=== PATIENT | male | born 1980 | race Caucasian/White ===

== ENCOUNTER 2019-12-06 19:14 | Emergency (ER) | payer MEDICAID, OTHER ==
[2019-12-06 19:24] VITALS: BP 153/95; PULSE 63; RESP 18; TEMP 98
--- NOTE | 2019-12-06 19:38 | XR ---
EXAMINATION TYPE: XR ankle complete LT DATE OF EXAM: 12/06/2019 COMPARISON: NONE HISTORY: Ankle pain TECHNIQUE: 3 views FINDINGS: Ankle mortise is anatomic. Joint spaces are normal. Soft tissues appear normal. IMPRESSION: Normal left ankle.
--- NOTE | 2019-12-06 19:47 | ED ---
Extremity Problem HPI - General Source: patient, EMS Mode of arrival: EMS Limitations: no limitations <Charli Delgado - Last Filed: 12/06/19 19:44> <Ewa Zaragoza - Last Filed: 12/14/19 13:18> - General Chief complaint: Extremity Problem,Nontraumatic Stated complaint: Left ankle injury - [facility] Time Seen by Provider: 12/06/19 19:17 - History of Present Illness Initial comments: Patient is a 39-year-old male presenting to the emergency department with a chief complaint of left leg injury. 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 Patient states the door was let loose and hit the anterior aspect of the left ankle. Reports some swelling in the region with a mild abrasion. Tetanus is up-to-date. States he has full range of motion. States the pain is minimal. Patient is denying pain medication. Patient states the incident occurred about half hour prior to arrival. (Charli Delgado) - Related Data Allergies Allergy/AdvReac Type Severity Reaction Status Date / Time No Known Allergies Allergy Verified 12/06/19 19:22 Review of Systems ROS Other: All systems not noted in ROS Statement are negative. <Charli Delgado - Last Filed: 12/06/19 19:44> ROS Other: All systems not noted in ROS Statement are negative. <Ewa Zaragoza - Last Filed: 12/14/19 13:18> ROS Statement: Those systems with pertinent positive or pertinent negative responses have been documented in the HPI. Past Medical History Past Medical History: GERD/Reflux Additional Past Medical History / Comment(s): back pain History of Any Multi-Drug Resistant Organisms: None Reported Past Surgical History: No Surgical Hx Reported Past Psychological History: No Psychological Hx Reported Smoking Status: Current every day smoker Past Alcohol Use History: None Reported Past Drug Use History: None Reported <Charli Delgado - Last Filed: 12/06/19 19:44> General Exam Limitations: no limitations General appearance: alert, in no apparent distress Head exam: Present: atraumatic, normocephalic, normal inspection Eye exam: Present: normal appearance, PERRL, EOMI Pupils: Present: normal accommodation ENT exam: Present: normal exam, normal oropharynx, mucous membranes moist Neck exam: Present: normal inspection, full ROM Respiratory exam: Present: normal lung sounds bilaterally. Absent: respiratory distress, wheezes Cardiovascular Exam: Present: regular rate, normal rhythm, normal heart sounds Extremities exam: Present: full ROM, tenderness (Minimal tenderness at the site of swelling), normal capillary refill, joint swelling, other (+2 ulnar and radial pulses bilaterally. +2 dorsalis pedis and posterior tibialis bilaterally.). Absent: normal inspection (Very mild swelling noted on the anterior aspect of the left ankle. No ecchymotic regions or erythema. Very small abrasion noted.) Back exam: Present: normal inspection, full ROM Neurological exam: Present: alert, oriented X3 Psychiatric exam: Present: normal affect, normal mood Skin exam: Present: warm, dry, intact, normal color <Charli Delgado - Last Filed: 12/06/19 19:44> Course Vital Signs 12/06/19 19:18 Temperature 98 F Pulse Rate 63 Respiratory 18 Rate Blood Pressure 153/95 O2 Sat by Pulse 100 Oximetry Medical Decision Making <Charli Delgado - Last Filed: 12/06/19 19:44> <Ewa Zaragoza - Last Filed: 12/14/19 13:18> - Medical Decision Making Patient is a 39-year-old male presenting to the emergency room with a chief complaint of left ankle pain. 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 Exam reveals mild swelling on the anterior aspect left ankle with full range of motion. Patient neurovascularly intact. X-rays unremarkable. Patient vised alternate between Tylenol Motrin for pain control. Advised to apply ice compress to minimize symptoms. Strict return parameters thoroughly discussed with patient was understanding and agreeable. Case discussed with physician. (Charli Delgado) I was available for consultation in the emergency department. The history and physical exam were done by the midlevel provider. I was consulted for this patients care. I reviewed the case with the midlevel provider and based on their presentation of the patient, I agree with the assessment, medical decision making and plan of care as documented. Chart was dictated using [employer] dictation software. Attempts were made to correct any dictation errors however some typographical errors may persist. Patient was seen during a national state of emergency due to the Covid-19 pandemic. (Ewa Zaragoza) Disposition Is patient prescribed a controlled substance at d/c from ED?: No Time of Disposition: 19:47 <Charli Delgado - Last Filed: 12/06/19 19:44> <Ewa Zaragoza - Last Filed: 12/14/19 13:18> Clinical Impression: Left ankle injury Disposition: HOME SELF-CARE Condition: Stable Instructions (If sedation given, give patient instructions): Ankle Strain (ED) Additional Instructions: Apply ice compress. Alternate between Tylenol and Motrin for pain control. Return to emergency department if symptoms worsen. Referrals: [facility],Clinic [Primary Care Provider] - 1-2 days
[2019-12-06] MEDS ORDERED: DIPH,PERTUS(ACELL)TETVAC-LF 0.5 ML VIAL IM ONE (19:50)
== END 2019-12-06 20:04 | disposition home or self-care (01) ==
LOC: EC 19:14
DX: S90.512A Abrasion, left ankle, initial encounter (principal); F17.200 Nicotine dependence, unspecified, uncomplicated; Z23 Encounter for immunization; W22.8XXA Striking against or struck by other objects, initial encounter; Y92.69 Other specified industrial and construction area as the place of occurrence of the external cause; Y99.0 Civilian activity done for income or pay
CPT/HCPCS: 90471; 90715; 99283

== ENCOUNTER → 2021-05-21 | Outpatient (CLI) | payer MEDICAID, OTHER | END | disposition home or self-care (01) | LOC: LABWHC1 15:06 | PROVIDERS: ATTEND Emergency Medicine | DX: Z20.822 Contact with and (suspected) exposure to COVID-19 (principal) | CPT/HCPCS: 87635 ==

== ENCOUNTER → 2021-05-22 | Outpatient (CLI) | payer MEDICAID, OTHER | END | disposition home or self-care (01) | LOC: LABWHC1 17:25 | PROVIDERS: ATTEND Emergency Medicine | DX: Z20.822 Contact with and (suspected) exposure to COVID-19 (principal) | CPT/HCPCS: 87635 ==

== ENCOUNTER 2022-05-22 08:40 | Emergency (ER) | payer OTHER ==
[2022-05-22 08:48] VITALS: BP 136/88; RESP 18; TEMP 98.1
[2022-05-22] MEDS ORDERED: NITROGLYCERIN OINT 1 INCH/GM PACKET TOPICAL STA (09:00)
[2022-05-22 09:04] VITALS: PULSE 82
--- NOTE | 2022-05-22 09:09 | ED ---
General Adult HPI - General Chief complaint: Chest Pain Stated complaint: chest pain Time Seen by Provider: 05/22/22 08:50 Source: patient, RN notes reviewed, old records reviewed Mode of arrival: ambulatory Limitations: no limitations - History of Present Illness Initial comments: This is a 41-year-old male who presents emergency Department complaining of chest pain. Patient states he had an episode last about 45 minutes Saturday and again on Saturday. Patient states he took aspirin on both occasions and it went away. Patient states he started having chest pain again today and he took an aspirin but the pain continues psychiatric emergency department. Patient denies any radiation of the pain. Patient states the pain is on his left side of his chest and it feels like a squeezing sensation. Patient denies any shortness of breath per patient denies any diaphoretic episodes or patient's any nausea or vomiting. Patient denies any fever chills or cough per patient denies any abdominal pain. Patient states he does have high cholesterol and is taking medicine for that. Patient denies any high blood pressure or diabetes. Patient denies smoking. Patient denies any family history of heart disease. - Related Data Allergies Allergy/AdvReac Type Severity Reaction Status Date / Time No Known Allergies Allergy Verified 12/06/19 19:22 Review of Systems ROS Statement: Those systems with pertinent positive or pertinent negative responses have been documented in the HPI. ROS Other: All systems not noted in ROS Statement are negative. Past Medical History Past Medical History: GERD/Reflux Additional Past Medical History / Comment(s): back pain History of Any Multi-Drug Resistant Organisms: None Reported Past Surgical History: No Surgical Hx Reported Past Psychological History: No Psychological Hx Reported Smoking Status: Current every day smoker Past Alcohol Use History: None Reported Past Drug Use History: None Reported General Exam - General Exam Comments Initial Comments: GENERAL: Patient is well-developed and well-nourished. Patient is nontoxic and well- hydrated and is in mild distress. ENT: Neck is soft and supple. No significant lymphadenopathy is noted. Oropharynx is clear. Moist mucous membranes. Neck has full range of motion without eliciting any pain. EYES: The sclera were anicteric and conjunctiva were pink and moist. Extraocular movements were intact and pupils were equal round and reactive to light. Ey elids were unremarkable. PULMONARY: Unlabored respirations. Good breath sounds bilaterally. No audible rales rhonchi or wheezing was noted. CARDIOVASCULAR: There is a regular rate and rhythm without any murmurs gallops or rubs. ABDOMEN: Soft and nontender with normal bowel sounds. SKIN: Skin is clear with no lesions or rashes and otherwise unremarkable. NEUROLOGIC: Patient is alert and oriented x3. Cranial nerves II through XII are grossly intact. Motor and sensory are also intact. Normal speech, volume and content. Symmetrical smile. MUSCULOSKELETAL: Normal extremities with adequate strength and full range of motion. LYMPHATICS: No significant lymphadenopathy is noted PSYCHIATRIC: Normal psychiatric evaluation. Limitations: no limitations Course Vital Signs 05/22/22 05/22/22 08:44 09:00 Temperature 98.1 F Pulse Rate 100 Pulse Rate [ 82 [employer] ] Respiratory 18 Rate Blood Pressure 136/88 O2 Sat by Pulse 97 Oximetry Medical Decision Making - Medical Decision Making EKG was interpreted by me. EKG showed sinus rhythm at 94 bpm TN interval 160 QRS is 102 QT interval 350 QTC is 402. Patient's EKG did have inverted T waves which changed to upright P waves and back to inverted P waves. Patient had no ST segment elevation. EKG by the computer was read as atrial fibrillation I disagree with this. I did a chest x-ray showed no acute abnormality. I went back in the room to discuss the results with the patient patient stated that he did not want to stay I asked him about staying on at least 2 different occasions and he definitively said he could not stay because he has daycare his daughter and that he would follow-up with his primary to get a stress test. Had the patient and willing to stay I would've admitted him for further evaluation with lab work and had cardiology see him. - Lab Data Result diagrams: 05/22/22 09:11 05/22/22 09:11 Lab Results 05/22/22 05/22/22 05/22/22 Range/Units 09:11 09:11 09:11 WBC 7.2 (3.8-10.6) k/uL RBC 5.48 (4.30-5.90) m/uL Hgb 15.9 (13.0-17.5) gm/dL Hct 46.5 (39.0-53.0) % MCV 84.9 (80.0-100.0) fL MCH 29.1 (25.0-35.0) pg MCHC 34.3 (31.0-37.0) g/dL RDW 12.2 (11.5-15.5) % Plt Count 211 (150-450) k/uL MPV 7.2 Neutrophils % 52 % Lymphocytes % 37 % Monocytes % 4 % Eosinophils % 4 % Basophils % 1 % Neutrophils # 3.8 (1.3-7.7) k/uL Lymphocytes # 2.7 (1.0-4.8) k/uL Monocytes # 0.3 (0-1.0) k/uL Eosinophils # 0.3 (0-0.7) k/uL Basophils # 0.1 (0-0.2) k/uL PT 10.8 (9.0-12.0) sec INR 1.0 (<1.2) APTT 24.2 (22.0-30.0) sec Sodium 141 (137-145) mmol/L Potassium 4.6 (3.5-5.1) mmol/L Chloride 104 (98-107) mmol/L Carbon Dioxide 30 (22-30) mmol/L Anion Gap 7 mmol/L BUN 13 (9-20) mg/dL Creatinine 0.87 (0.66-1.25) mg/dL Est GFR (CKD-EPI)AfAm >90 (>60 ml/min/1.73 sqM) Est GFR (CKD-EPI)NonAf >90 (>60 ml/min/1.73 sqM) Glucose 103 H (74-99) mg/dL Calcium 9.1 (8.4-10.2) mg/dL Magnesium 1.9 (1.6-2.3) mg/dL Total Bilirubin 0.7 (0.2-1.3) mg/dL AST 30 (17-59) U/L ALT 22 (4-49) U/L Alkaline Phosphatase 69 (38-126) U/L Troponin I (0.000-0.034) ng/mL Total Protein 7.2 (6.3-8.2) g/dL Albumin 4.8 (3.5-5.0) g/dL 05/22/22 Range/Units 09:11 WBC (3.8-10.6) k/uL RBC (4.30-5.90) m/uL Hgb (13.0-17.5) gm/dL Hct (39.0-53.0) % MCV (80.0-100.0) fL MCH (25.0-35.0) pg MCHC (31.0-37.0) g/dL RDW (11.5-15.5) % Plt Count (150-450) k/uL MPV Neutrophils % % Lymphocytes % % Monocytes % % Eosinophils % % Basophils % % Neutrophils # (1.3-7.7) k/uL Lymphocytes # (1.0-4.8) k/uL Monocytes # (0-1.0) k/uL Eosinophils # (0-0.7) k/uL Basophils # (0-0.2) k/uL PT (9.0-12.0) sec INR (<1.2) APTT (22.0-30.0) sec Sodium (137-145) mmol/L Potassium (3.5-5.1) mmol/L Chloride (98-107) mmol/L Carbon Dioxide (22-30) mmol/L Anion Gap mmol/L BUN (9-20) mg/dL Creatinine (0.66-1.25) mg/dL Est GFR (CKD-EPI)AfAm (>60 ml/min/1.73 sqM) Est GFR (CKD-EPI)NonAf (>60 ml/min/1.73 sqM) Glucose (74-99) mg/dL Calcium (8.4-10.2) mg/dL Magnesium (1.6-2.3) mg/dL Total Bilirubin (0.2-1.3) mg/dL AST (17-59) U/L ALT (4-49) U/L Alkaline Phosphatase (38-126) U/L Troponin I <0.012 (0.000-0.034) ng/mL Total Protein (6.3-8.2) g/dL Albumin (3.5-5.0) g/dL Disposition Clinical Impression: Chest pain Disposition: HOME SELF-CARE Instructions (If sedation given, give patient instructions): Chest Pain (ED) Is patient prescribed a controlled substance at d/c from ED?: No Referrals: [facility],Clinic [Primary Care Provider] - 1-2 days Time of Disposition: 10:22
[2022-05-22 09:23] LABS: Basophils # (A) 0.1 k/uL (0-0.2); Basophils % (A) 1 %; Eosinophils # (A) 0.3 k/uL (0-0.7); Eosinophils % (A) 4 %; HCT 46.5 % (39.0-53.0); HGB 15.9 gm/dL (13.0-17.5); Lymphocytes # (A) 2.7 k/uL (1.0-4.8); Lymphocytes % (A) 37 %; MCH 29.1 pg (25.0-35.0); MCHC 34.3 g/dL (31.0-37.0); MCV 84.9 fL (80.0-100.0); Mean Platelet Volume 7.2; Monocytes # (A) 0.3 k/uL (0-1.0); Monocytes % (A) 4 %; Neutrophils # (A) 3.8 k/uL (1.3-7.7); Neutrophils % (A) 52 %; Platelet Count 211 k/uL (150-450); RBC 5.48 m/uL (4.30-5.90); RDW 12.2 % (11.5-15.5); WBC 7.2 k/uL (3.8-10.6)
--- NOTE | 2022-05-22 09:28 | XR ---
EXAMINATION TYPE: XR chest 2V DATE OF EXAM: 05/22/2022 COMPARISON: NONE HISTORY: Chest pain. TECHNIQUE: Frontal and lateral views of the chest are obtained. FINDINGS: There is no focal air space opacity, pleural effusion, or pneumothorax seen. The cardiac silhouette size is within normal limits. The osseous structures are intact. Overlying EKG leads are present. IMPRESSION: No acute process.
[2022-05-22 09:36] LABS: ALT 22 U/L (4-49); AST 30 U/L (17-59); African American GFR (CKD) >90 (>60 ml/min/1.73 sqM); Albumin 4.8 g/dL (3.5-5.0); Alkaline Phosphatase 69 U/L (38-126); Anion Gap 7 mmol/L; Blood Urea Nitrogen 13 mg/dL (9-20); Calcium 9.1 mg/dL (8.4-10.2); Carbon Dioxide 30 mmol/L (22-30); Chloride 104 mmol/L (98-107); Glucose 103 mg/dL (74-99); Magnesium 1.9 mg/dL (1.6-2.3); Non-African American GFR(CKD) >90 (>60 ml/min/1.73 sqM); Potassium 4.6 mmol/L (3.5-5.1); Sodium 141 mmol/L (137-145); Total Bilirubin 0.7 mg/dL (0.2-1.3); Total Protein 7.2 g/dL (6.3-8.2)
[2022-05-22 09:39] LABS: Partial Thromboplastin Time 24.2 sec (22.0-30.0); Prothrombin Time 10.8 sec (9.0-12.0)
== END 2022-05-22 10:43 | disposition home or self-care (01) ==
LOC: EC 08:40
DX: R07.9 Chest pain, unspecified (principal)
CPT/HCPCS: 36415; 71046; 80053; 83735; 84484; 85025; 85610; 85730; 99285

== ENCOUNTER 2022-05-23 21:12 | Observation (INO) | payer OTHER ==
[2022-05-23 23:15] LABS: Basophils # (A) 0.1 k/uL (0-0.2); Basophils % (A) 1 %; Eosinophils # (A) 0.2 k/uL (0-0.7); Eosinophils % (A) 3 %; HCT 44.9 % (39.0-53.0); HGB 16.1 gm/dL (13.0-17.5); Lymphocytes # (A) 2.6 k/uL (1.0-4.8); Lymphocytes % (A) 30 %; MCH 29.7 pg (25.0-35.0); MCHC 35.8 g/dL (31.0-37.0); MCV 82.9 fL (80.0-100.0); Monocytes # (A) 0.4 k/uL (0-1.0); Monocytes % (A) 5 %; Neutrophils % (A) 60 %; Platelet Count 248 k/uL (150-450); RBC 5.42 m/uL (4.30-5.90); RDW 12.1 % (11.5-15.5); WBC 8.4 k/uL (3.8-10.6)
[2022-05-23 23:23] LABS: Partial Thromboplastin Time 24.6 sec (22.0-30.0); Prothrombin Time 10.7 sec (9.0-12.0)
[2022-05-23 23:25] LABS: ALT 22 U/L (4-49); AST 33 U/L (17-59); African American GFR (CKD) >90 (>60 ml/min/1.73 sqM); Albumin 5.2 g/dL (3.5-5.0); Alkaline Phosphatase 84 U/L (38-126); Anion Gap 11 mmol/L; Blood Urea Nitrogen 14 mg/dL (9-20); Calcium 9.1 mg/dL (8.4-10.2); Carbon Dioxide 26 mmol/L (22-30); Chloride 102 mmol/L (98-107); Glucose 112 mg/dL (74-99); Magnesium 2.2 mg/dL (1.6-2.3); Non-African American GFR(CKD) >90 (>60 ml/min/1.73 sqM); Potassium 4.5 mmol/L (3.5-5.1); Sodium 139 mmol/L (137-145); Total Bilirubin 0.4 mg/dL (0.2-1.3); Total Protein 7.9 g/dL (6.3-8.2)
[2022-05-24 00:47] VITALS: RESP 16
[2022-05-24] MEDS ORDERED: ASPIRIN 81 MG PO STA (01:36)
[2022-05-24] MEDS ORDERED: NITROGLYCERIN OINT 1 INCH/GM PACKET TOPICAL STA (01:38)
--- NOTE | 2022-05-24 01:38 | ED ---
Chest Pain HPI - General Chief Complaint: Chest Pain Stated Complaint: chest pain Time Seen by Provider: 05/23/22 21:45 Source: patient Mode of arrival: ambulatory Limitations: no limitations - History of Present Illness Initial Comments: 42-year-old male with past medical history of hypertriglyceridemia who presents to the emergency department with continued chest pain. States that starting Saturday the patient began having left-sided anterior chest pain which radiated into his left arm. Pain seemed to be reproducible with exertion and better at rest. He denies associated fevers, chills or cough. No personal history of cardiac disease. No family history of sudden cardiac . He states that when he uses aspirin that it will alleviate his symptoms. He came into the emergency department yesterday for evaluation. It was recommended that the patient be admitted to the hospital however the patient had responsibilities with his children. States that the pain has persisted today. The children are now at their mother's house in the patient has availability to continue his workup. He states that his pain is minimal at this time. Patient is a smoker. No other alleviating, presentation modifying factors - Related Data Home Medications Medication Instructions Recorded Confirmed Acetaminophen [Tylenol 8 Hour] 650 mg PO Q8H PRN 05/24/22 05/24/22 Calcium Carbonate [Tums] 500 mg PO QID PRN 05/24/22 05/24/22 Famotidine [Pepcid] 20 mg PO BID 05/24/22 05/24/22 Magnesium 250 mg PO DAILY 05/24/22 05/24/22 Melatonin 1 mg PO HS PRN 05/24/22 05/24/22 Niacin 500 mg PO DAILY 05/24/22 05/24/22 Check-3/Dha/Epa/Fish Oil [Fish Oil 1 cap PO DAILY 05/24/22 05/24/22 1,000 mg Softgel] diphenhydrAMINE [Benadryl] 25 mg PO HS PRN 05/24/22 05/24/22 methocarbamoL [Methocarbamol] 1,500 mg PO TID PRN 05/24/22 05/24/22 traMADol HCL 100 mg PO QID PRN 05/24/22 05/24/22 Allergies Allergy/AdvReac Type Severity Reaction Status Date / Time No Known Allergies Allergy Verified 05/24/22 13:06 Review of Systems ROS Statement: Those systems with pertinent positive or pertinent negative responses have been documented in the HPI. ROS Other: All systems not noted in ROS Statement are negative. EKG Findings - EKG Comments: EKG Findings:: EKG is performed and interpreted by myself. Demonstrates a sinus rhythm with a rate 86. GA interval 170. QRS 95. QTC of 383. ST segments elevated in in 2, 3, aVF. No reciprocal depressions Past Medical History Past Medical History: GERD/Reflux Additional Past Medical History / Comment(s): back pain History of Any Multi-Drug Resistant Organisms: None Reported Past Surgical History: No Surgical Hx Reported Past Psychological History: No Psychological Hx Reported Smoking Status: Current every day smoker Past Alcohol Use History: None Reported Past Drug Use History: None Reported - Past Family History familiy Additional Family Medical History / Comment(s): patient does not know his family history , unaware of CAD General Exam Limitations: no limitations General appearance: alert, in no apparent distress Head exam: Present: atraumatic, normocephalic, normal inspection Eye exam: Present: normal appearance, PERRL, EOMI. Absent: scleral icterus, conjunctival injection, periorbital swelling ENT exam: Present: normal exam, mucous membranes moist Neck exam: Present: normal inspection. Absent: tenderness, meningismus, lymphadenopathy Respiratory exam: Present: normal lung sounds bilaterally. Absent: respiratory distress, wheezes, rales, rhonchi, stridor Cardiovascular Exam: Present: regular rate, normal rhythm, normal heart sounds. Absent: systolic murmur, diastolic murmur, rubs, gallop, clicks GI/Abdominal exam: Present: soft, normal bowel sounds. Absent: distended, tenderness, guarding, rebound, rigid Extremities exam: Present: normal inspection, full ROM, normal capillary refill. Absent: tenderness, pedal edema, joint swelling, calf tenderness Back exam: Present: normal inspection Neurological exam: Present: alert, oriented X3, CN II-XII intact Psychiatric exam: Present: normal affect, normal mood Skin exam: Present: warm, dry, intact, normal color. 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 A thorough history and physical exam was performed. I did review the patient's imaging from yesterday as well as his laboratory studies. Troponin was negative. Repeat laboratory studies were obtained today which to demonstrate a negative troponin. He was given 2 additional baby aspirins as he Maryanne took 2 at home. Nitropaste is applied to the chest. Recommended admission. Called and spoke with Dr. Sanches who was agreeable. Disposition Clinical Impression: Chest pain, Accelerated hypertension Disposition: ADMITTED IP TO THIS HOSP Condition: Stable Is patient prescribed a controlled substance at d/c from ED?: No Time of Disposition: :38 Decision to Admit Reason: Admit from EC Decision Date: 05/24/22 Decision Time: :38
[2022-05-24] MEDS ORDERED: NALOXONE 0.4 MG/ML 1 ML VIAL IV PRN (01:40)
[2022-05-24] MEDS ORDERED: diphenhydrAMINE 50 MG CAP PO STA (01:43)
[2022-05-24] MEDS ORDERED: MELATONIN 3 MG TABLET PO STA (01:44)
[2022-05-24] MEDS: FAMOTIDINE 20 MG TAB PO SCH ×2 (01:55→08:47)
[2022-05-24] MEDS: methocarbamoL 750 MG TAB PO SCH ×2 (01:56→09:32)
[2022-05-24] MEDS: traMADol 50 MG TAB PO SCH ×3 (01:56→12:58)
--- NOTE | 2022-05-24 04:58 | P.HPIM ---
History of Present Illness H&P Date: 05/24/22 Chief Complaint: chest pain 42 year old male with hyperlipidemia patient presented for evaluation of recurrent episodes of chest pain over the past few days, he is finding it increasingly difficult to carry his daughter of 30 lb with down syndrome. he is describing left sided severe sharp chest pain with exertion, non radiating, associated with heavy breathing , profuse sweating, nausea , improves with aspirin and nitro , he denies any cardiac workup in the past. he admits to smoking , but does not know his family history he denies any recent illness, travel or hospital stay , denies any recent URI symptoms, vaccines, or changes in his bowel or urinary habits . workup in the ED unremarkable negative trops and EKG showed no acute ST changes Review of Systems Pertinent positives as noted in HPI. All other systems were reviewed and are negative Past Medical History Past Medical History: GERD/Reflux Additional Past Medical History / Comment(s): back pain History of Any Multi-Drug Resistant Organisms: None Reported Past Surgical History: No Surgical Hx Reported Past Psychological History: No Psychological Hx Reported Smoking Status: Current every day smoker Past Alcohol Use History: None Reported Past Drug Use History: None Reported - Past Family History familiy Additional Family Medical History / Comment(s): patient does not know his family history , unaware of CAD Medications and Allergies Allergies Allergy/AdvReac Type Severity Reaction Status Date / Time No Known Allergies Allergy Verified 05/23/22 21:42 Physical Exam Vitals: Vital Signs Temp Pulse Pulse Resp BP Pulse Ox 05/24/22 01:46 75 16 126/86 100 05/24/22 00:50 70 05/24/22 00:42 94 16 139/102 98 05/23/22 21:40 97.6 F 101 H 20 160/103 96 Intake and Output 05/23/22 05/23/22 05/24/22 14:59 22:59 06:59 Other: Weight 79.379 kg Constitutional: No acute distress, conversant, pleasant Eyes: Anicteric sclerae, moist conjunctiva, Pupils equal round reactive to light ENMT: NC/AT Neck: Supple, no masses, or JVD No carotid bruits No thyromegaly Lungs: Clear to auscultation Clear to percussion Normal respiratory effort, no accessory muscle use Cardiovascular: Heart regular in rate and rhythm, No murmurs, gallops, or rubs No peripheral edema Abdominal: Soft Nontender, no guarding, rebound or rigidity Abdomen moving with respiration Normoactive bowel sounds Skin: Normal temperature, tone, texture, turgor Extremities: No digital cyanosis No clubbing Pedal pulses intact and symmetrical Radial pulses intact and symmetrical No calf tenderness Psychiatric: Alert and oriented to person, place and time Appropriate affect fair judgement Neuro Muscles Strength 5/5 in all 4 extremities Sensation to light touch grossly present throughout Cranial nerves II-XII grossly intact Lymphatics: no palpable cervical or supraclavicular lymph nodes Results CBC & Chem 7: 05/23/22 22:50 05/23/22 22:50 Labs: Abnormal Lab Results - Last 24 Hours (Table) 05/23/22 Range/Units 22:50 Glucose 112 H (74-99) mg/dL Albumin 5.2 H (3.5-5.0) g/dL Assessment and Plan Assessment: atypical chest pain rule out ACS EKG no acute changes CXR no acute pathology trops negative X2 monitor tech monitor vital signs ASA, statin cardiology consult A1c, lipid panel , TSH pain control full code DVT PPX heparin sc tid
[2022-05-24] MEDS: ACETAMINOPHEN TAB 500 MG TAB PO SCH ×2 (05:22→08:46)
[2022-05-24] MEDS ORDERED: HEPARIN SODIUM,PORCINE/PF 5,000 UNIT/0.5 ML SYRINGE SQ SCH (08:00)
[2022-05-24 08:34] VITALS: BP 113/71; PULSE 67; TEMP 97.8
[2022-05-24] MEDS ORDERED: ASPIRIN 81 MG PO SCH (09:00)
[2022-05-24] MEDS ORDERED: DOBUTamine DRIP for NUC MED 500 MG in DEXTROSE/WATER 1 250ML.BAG IV PRN (09:30)
[2022-05-24] MEDS ORDERED: NITROGLYCERIN SL TABS 0.4 MG TAB SUBLINGUAL STA (09:38)
--- NOTE | 2022-05-24 09:41 | CA ---
Transthoracic Echo Report Name: Jonathan Carrillo Age: 42 Gender: M : 1980 Exam Date: 05/24/2022 08:08 Exam Location: [place] [facility] Ht (in): 68 Wt (lb): 175 Ordering Physician: Ewa Zaragoza DO Attending/Referring Phys: [id number], Nik Insurance Claims Adjuster Jeanette West, [facility] Procedure CPT: Indications: Chest Pain Cardiac Hx: Technical Quality: Contrast 1: Total Dose (mL): Contrast 2: Total Dose (mL): MEASUREMENTS (Male / Female) Normal Values 2D ECHO LV Diastolic Diameter PLAX 3.8 cm 4.2 - 5.9 / 3.9 - 5.3 cm LV Systolic Diameter PLAX 3.8 cm IVS Diastolic Thickness 1.1 cm 0.6 - 1.0 / 0.6 - 0.9 cm LVPW Diastolic Thickness 2.4 cm 0.6 - 1.0 / 0.6 - 0.9 cm LV Relative Wall Thickness 0.9 RV Internal Dim ED PLAX 2.7 cm LA Systolic Diameter LX 3.0 cm 3.0 - 4.0 / 2.7 - 3.8 cm LA Volume 49.8 cm??? 18 - 58 / 22 - 52 cm??? M-MODE Aortic Root Diameter MM 3.7 cm LA Systolic Diameter MM 2.8 cm LA Ao Ratio MM 0.8 MV E Point Septal Separation 0.7 cm AV Cusp Separation MM 2.6 cm DOPPLER MV Area PHT 3.6 cm??? Mitral E Point Velocity 55.0 cm/s Mitral A Point Velocity 54.5 cm/s Mitral E to A Ratio 1.0 MV Deceleration Time 210.2 ms MV E' Velocity 7.8 cm/s Mitral E to MV E' Ratio 7.1 FINDINGS Left Ventricle Normal left ventricular size, wall thickness, systolic function with no obvious regional wall motion abnormalities. Left ventricular ejection fraction is estimated at 55 %. Right Ventricle The right ventricle is normal in size and function. Right Atrium The right atrium is normal in size. Left Atrium The left atrium is normal in size. Mitral Valve Structurally normal mitral valve without significant stenosis or prolapse. There is mild mitral regurgitation. Aortic Valve Structurally normal aortic valve without significant sclerosis or stenosis. There is no aortic regurgitation. Tricuspid Valve Structurally normal tricuspid valve without significant stenosis. Pulmonary artery systolic pressure is normal. Pulmonic Valve Structurally normal pulmonic valve without significant stenosis. There is no pulmonic regurgitation. Pericardium Normal pericardium without effusion. Aorta Normal aortic root dimension. CONCLUSIONS Normal left ventricle size and systolic function. No significant abnormality in the Doppler exam. No pericardial effusion Previewed by: Dr. Wanda Hernandez MD (Electronically Signed) Final Date: 24 May 2022 09:41
--- NOTE | 2022-05-24 10:16 | P.CRDCN ---
History of Present Illness History of present illness: HISTORY OF PRESENTING ILLNESS This is a pleasant 42-year-old male past medical history significant for chronic nicotine dependence and hyperlipidemia. Does not currently follow with a cardiol ogist. We have been asked to see in consultation for chest pain. Patient presents to the emergency department with complaints of chest discomfort. He states this has been occurring for the past week. He notices is often when he picks up his daughter and starts walking with her. Once he stops and rests it improves. He states it has been getting worse. He denies any injury but has done significant lifting at home. He has no tenderness on exam. He took aspirin and was given nitropaste with some improvement in his pain. He denies any associated symptoms. Denies shortness of breath, nausea, vomiting, diaphoresis, lightheadedness, dizziness, syncope or near syncope. He is a current every day smoker. Denies any history of CAD, [place], Stroke, diabetes or hypertension. He denies any alcohol use. He is not aware of any family history. DIAGNOSTICS * EKG reveals sinus rhythm, heart rate 86, early repolarization in inferior leads. Prior EKG in 05/22 with similar findings. * Echocardiogram revealed EF 55%, no significant valvular wall motion abnormalities * Telemetry tracings indicate sinus mechanism. * Laboratory reviewed, troponin negative 3, CBC unremarkable, hemoglobin A1c 5.6, sodium 139, potassium 4.5, BUN 14, serum creatinine 0.8, magnesium 2.2. * Current home medications include fish oil and niacin REVIEW OF SYSTEMS At the time of my exam: CONSTITUTIONAL: Denies fever or chills. CARDIOVASCULAR: +chest pain, Denies shortness of breath, orthopnea, PND or palpitations. RESPIRATORY: Denies cough. GASTROINTESTINAL: Denies abdominal pain, diarrhea, constipation, nausea or vomiting. MUSCULOSKELETAL: Denies myalgias. NEUROLOGIC: Denies numbness, tingling, headache or weakness. ENDOCRINE: Denies fatigue, weight change, polydipsia or polyurina. GENITOURINARY: Denies burning, hematuria or urgency with micturation. HEMATOLOGIC: Denies history of anemia or bleeding. PHYSICAL EXAMINATION Blood pressure 113/71, heart 67, afebrile, oxygen saturations 98% on room air CONSTITUTIONAL: No apparent distress. HEENT: Head is normocephalic. Pupils are equal, round. Sclerae anicteric. Mucous membranes of the mouth are moist. No JVD. No carotid bruit. CHEST EXAMINATION: Lungs are clear to auscultation. No chest wall tenderness is noted on palpation or with deep breathing. HEART EXAMINATION: Regular rate and rhythm. S1, S2 heard. No murmurs, gallops or rub. ABDOMEN: Soft, nontender. Positive bowel sounds. EXTREMITIES: 2+ peripheral pulses, no lower extremity edema and no calf tender ness. SKIN: warm, dry NEUROLOGIC EXAMINATION: Patient is awake, alert and oriented x3. ASSESSMENT Chest pain, acute coronary syndrome has been ruled out Chronic nicotine dependence Dyslipidemia PLAN An acute coronary event has been ruled out with no EKG evidence of ischemia and negative cardiac enzymes. Patient states he has had multiple back injuries and is unable to walk on the treadmill. We will perform Dobutamine stress echo test to assess for stress induced cardiac ischemia. If abnormal will consider coronary angiography. Lipid panel Recommend stopping home fish oil and niacin for treatment of dyslipidemia, follow up on lipid panel Smoking cessation discussed and highly recommended. If stress test with no evidence of stress-induced ischemia, no further inpatient workup from cardiology perspective Thank you kindly for this consultation. Nurse practitioner note has been reviewed by physician. Signing provider agrees with the documented findings, assessment, and plan of care. Past Medical History Past Medical History: GERD/Reflux Additional Past Medical History / Comment(s): back pain History of Any Multi-Drug Resistant Organisms: None Reported Past Surgical History: No Surgical Hx Reported Past Psychological History: No Psychological Hx Reported Smoking Status: Current every day smoker Past Alcohol Use History: None Reported Past Drug Use History: None Reported - Past Family History familiy Additional Family Medical History / Comment(s): patient does not know his family history , unaware of CAD Medications and Allergies Allergies Allergy/AdvReac Type Severity Reaction Status Date / Time No Known Allergies Allergy Verified 05/23/22 21:42 Physical Exam Vitals: Vital Signs Temp Pulse Pulse Resp BP BP Pulse Ox 05/24/22 08:32 97.8 F 67 16 113/71 98 05/24/22 08:26 16 05/24/22 01:46 75 16 126/86 100 05/24/22 00:50 70 05/24/22 00:42 94 16 139/102 98 05/23/22 21:40 97.6 F 101 H 20 160/103 96 Intake and Output 05/23/22 05/24/22 05/24/22 22:59 06:59 14:59 Other: Voiding Method Toilet Weight 79.379 kg Results 05/23/22 22:50 05/23/22 22:50 Cardiac Enzymes 05/23/22 05/23/22 05/24/22 Range/Units 22:50 22:50 03:45 AST 33 (17-59) U/L Troponin I <0.012 <0.012 (0.000-0.034) ng/mL 05/24/22 Range/Units 06:17 AST (17-59) U/L Troponin I <0.012 (0.000-0.034) ng/mL Coagulation 05/23/22 Range/Units 22:50 PT 10.7 (9.0-12.0) sec APTT 24.6 (22.0-30.0) sec CBC 05/23/22 Range/Units 22:50 WBC 8.4 (3.8-10.6) k/uL RBC 5.42 (4.30-5.90) m/uL Hgb 16.1 (13.0-17.5) gm/dL Hct 44.9 (39.0-53.0) % Plt Count 248 (150-450) k/uL Comprehensive Metabolic Panel 05/23/22 Range/Units 22:50 Sodium 139 (137-145) mmol/L Potassium 4.5 (3.5-5.1) mmol/L Chloride 102 (98-107) mmol/L Carbon Dioxide 26 (22-30) mmol/L BUN 14 (9-20) mg/dL Creatinine 0.80 (0.66-1.25) mg/dL Glucose 112 H (74-99) mg/dL Calcium 9.1 (8.4-10.2) mg/dL AST 33 (17-59) U/L ALT 22 (4-49) U/L Alkaline Phosphatase 84 (38-126) U/L Total Protein 7.9 (6.3-8.2) g/dL Albumin 5.2 H (3.5-5.0) g/dL Current Medications Generic Name Dose Route Start Last Admin Trade Name Freq PRN Reason Stop Dose Admin Acetaminophen 500 mg 05/24/22 02:00 05/24/22 08:46 Acetaminophen Tab 500 Mg Tab PO 500 mg Q6HR MAKAYLA Administration Aspirin 81 mg 05/24/22 09:00 05/24/22 08:47 Aspirin 81 Mg PO 81 mg DAILY MAKAYLA Administration Famotidine 20 mg 05/24/22 01:45 05/24/22 08:47 Famotidine 20 Mg Tab PO 20 mg BID MAKAYLA Administration Heparin Sodium (Porcine) 5,000 unit 05/24/22 08:00 05/24/22 08:47 Heparin Sodium,Porcine/Pf 5,000 Unit/0.5 Ml Syringe SQ 5,000 unit Q8HR MAKAYLA Administration Methocarbamol 1,500 mg 05/24/22 01:45 05/24/22 01:56 Methocarbamol 750 Mg Tab PO 1,500 mg TID MAKAYLA Administration Naloxone HCl 0.2 mg 05/24/22 01:40 Naloxone 0.4 Mg/Ml 1 Ml Vial IV Q2M PRN Opioid Reversal Tramadol HCl 100 mg 05/24/22 01:45 05/24/22 08:52 Tramadol 50 Mg Tab PO 100 mg QID MAKAYLA Administration Intake and Output 05/23/22 05/24/22 05/24/22 22:59 06:59 14:59 Other: Voiding Method Toilet Weight 79.379 kg 05/23/22 22:50 05/23/22 22:50
[2022-05-24 10:19] LABS: Chol/HDL Ratio 4.12 Ratio; LDL Cholesterol,Calculated 64.6 mg/dL (0.0-131.0)
--- NOTE | 2022-05-24 15:01 | P.DS ---
Providers Date of admission: 05/24/22 01:42 Expected date of discharge: 05/24/22 Attending physician: Eileen Sanches MD Consults: 05/24/22 01:40 Consult Physician Urgent Consulting Provider: [facility] Consult Reason/Comments: acute chest pain, possible acs Do you want consulting provider notified?: Yes Primary care physician: [facility] Hospital Course: Discharge Diagnosis: Chest pain, acute coronary event ruled out. Hypertension, resolved without treatment. Hyperlipidemia, continue heart healthy diet withOmega-3 and niacin supplements. Hospital Course: Patient is a very pleasant 42 -year-old male with a past medical history of hyperlipidemia and reports previously having hypertriglyceridemia which was controlled via dietary changes and intake of fish oil. He presented to the emergency department with a chief complaint of chest pain. Patient reported having intermittent chest pain waxing and waning over the past few days. He underwent full evaluation in the emergency department. Initially upon arrival patient was hypertensive with blood pressure 160/103 and heart rate of 101. EKG was completed showing sinus rhythm at [address] elevation in inferior leads 2, 3, and aVF. Troponin was negative at less than 0.012. CBC, coags, and CMP unremarkable. Patient was admitted under our services with consultation to cardiology. Troponins were trended overnight all negative at less than 0.0123 draws. Hemoglobin A1c 5.6% and lipid profile unremarkable with the exception of low HDL of 29.40. Echocardiogram revealing normal EF of 55% with no reported structural or valvular abnormalities. Patient was evaluated by cardiology and taken for a stress test. Cardiology reported stress test was unremarkable showing no evidence of reversible ischemia. Patient is medically stable at this time is stable for discharge home. Vital signs 113/71, heart rate 67, respiratory rate 16 and pulse ox 98% on room air. Patient to follow up outpatient with PCP in 1-2 days and cardiology and 1 week. Physical exam: Patient seen and examined at bedside. Vital signs reviewed and stable. General: Nontoxic, no distress and appears stated age. Derm: Skin warm and dry, normal coloration for ethnicity. Head: Atraumatic, normocephalic and symmetric. Eyes: EOMs intact, no lid lag, and anicteric sclera Mouth: no lip lesions, mucus membranes moist Cardiovascular: regular rate and rhythm with normal S1S2, no murmur, positive posterior tibial pulses bilaterally, and cap refill < 2 seconds. Lungs: Respirations even, regular, and unlabored on room air. Lungs CTA bilaterally, no rhonchi, no rales, no wheezing, and no accessory muscle usage. Abdominal: soft, nontender to palpation, no guarding, no appreciable organomegaly Ext: ROM intact. No gross muscle atrophy, no edema, no contractures Neuro: Speech clear, face symmetrical and CN II-XII grossly intact with no noted focal neuro deficits Psych: Alert and oriented to person, place, time, and situation. Appropriate and pleasant affect. A total of 33 minutes of time were spent preparing this complex discharge summary. Pt was discharged on 05/24/22 at 2:59 PM I reviewed the documentation as provided by the DONAL above, who is the original author of this note. I agree with the documented assessment and plan, with the following changes: none Patient Condition at Discharge: Stable Plan - Discharge Summary New Discharge Prescriptions: Continue traMADol HCL 100 mg PO QID PRN PRN Reason: Pain [place]-3/Dha/Epa/Fish Oil [Fish Oil 1,000 mg Softgel] 1 cap PO DAILY Calcium Carbonate [Tums] 500 mg PO QID PRN PRN Reason: Indigestion Acetaminophen [Tylenol 8 Hour] 650 mg PO Q8H PRN PRN Reason: Pain Or Fever > 100.5 Famotidine [Pepcid] 20 mg PO BID Magnesium 250 mg PO DAILY Melatonin 1 mg PO HS PRN PRN Reason: sleep diphenhydrAMINE [Benadryl] 25 mg PO HS PRN PRN Reason: Allergy Symptoms Niacin 500 mg PO DAILY methocarbamoL [Methocarbamol] 1,500 mg PO TID PRN PRN Reason: Pain Discharge Medication List Acetaminophen [Tylenol 8 Hour] 650 mg PO Q8H PRN 05/24/22 [History] Calcium Carbonate [Tums] 500 mg PO QID PRN 05/24/22 [History] Famotidine [Pepcid] 20 mg PO BID 05/24/22 [History] Magnesium 250 mg PO DAILY 05/24/22 [History] Melatonin 1 mg PO HS PRN 05/24/22 [History] Niacin 500 mg PO DAILY 05/24/22 [History] [place]-3/Dha/Epa/Fish Oil [Fish Oil 1,000 mg Softgel] 1 cap PO DAILY 05/24/22 [History] diphenhydrAMINE [Benadryl] 25 mg PO HS PRN 05/24/22 [History] methocarbamoL [Methocarbamol] 1,500 mg PO TID PRN 05/24/22 [History] traMADol HCL 100 mg PO QID PRN 05/24/22 [History] Follow up Appointment(s)/Referral(s): Hubert Canchola MD [STAFF PHYSICIAN] - 1 Week [facility]Clinic [Primary Care Provider] - 1-2 days Patient Instructions/Handouts: Chest Pain (DC) Activity/Diet/Wound Care/Special Instructions: Activity: As tolerated. Take breaks as needed. Diet: Heart healthy and carb consistent diet. Avoid salts, or foods with hidden salts such as canned or boxed foods and frozen dinners. Extra salt makes your heart work harder and traps the fluid in your body for longer. Special Instructions: Take all of your medications as directed and remember to keep all of your doctor's appointments and follow-up as needed. Thank you for allowing us to participate in your care, it was truly a pleasure having you for our patient!!! Discharge Disposition: HOME SELF-CARE
--- NOTE | 2022-06-04 07:40 | CA ---
Stress Echo Report Jonathan Carrillo Age: 42 Gender: M : 1980 Exam Date: 05/24/2022 11:59 Exam Location: [facility] Ht (in): 68 Wt (lb): 175 Ordering Physician: Jane Pack Referring Physician: HEIDI,, Pain Management Physician: Jeanette West RDCS Technologist Procedure CPT: Indication: Chest Pain ICD-9 Codes: Rhythm: Patient History: CHEST PAIN, FAMILY HX OF HEART DISEASE, CURRENT SMOKER 1 PPD X 20 YEARS Cardiac Medications: Medications in past 24 hours: Contrast: Stress Results Protocol: Pablo Total dose(mL): Exercise Duration (min:sec): 12:[address] Depression (mm): Angina Score: Ochoa Score: METS: 12.3 Resting HR: 74 Resting BP: 141 / 99 Peak HR: 176 Peak BP: 212 / 84 Max Predicted HR: 179 98 % Max Predicted HR Target HR: 152 Double Product: 07275 Stress Summary: BP Response: Reason for Termination: MAX EXERTION/TARGET HR Cardiac Symptoms: CHEST PAIN AT REST THAT DID NOT INCREASE WITH EXERCISE ECG Analysis Resting ECG: Stress ECG: Arrhythmia: Echo Analysis Resting Echo: Peak Echo Analysis: MEASUREMENTS (Male/Female) Normal Values CONCLUSIONS Baseline EKG revealed normal sinus rhythm without significant ST-T changes. Patient walked on a standard Pablo protocol for 12 minutes and achieved a maximum heart rate of 175 bpm which is available 85% of predicted maximal. His resting heart rate was 102 bpm. Resting blood pressure was 141/98 peak blood pressure was 212/84. Patient had a constant steady chest pain very atypical without any change during the stress test. EKG criteria this is a negative stress test with excellent exercise capacity Baseline echo images revealed normal wall motion wall thickening of all segments. At peak exercise there was good augmentation of left ventricle wall motion wall thickening of all segments suggesting that there is no evidence of any stress-induced ischemia on this study. Excellent x-rays capacity the negative stress has been EKG criteria and normal stress echocardiogram without evidence of ischemia. Dr. Wanda Hernandez MD (Electronically Signed) Final Date: 24 May 2022 13:13
== END 2022-05-24 17:39 | disposition home or self-care (01) ==
LOC: EC 21:12 → 6NMEDSUR 05-24 01:42
PROVIDERS: ADMIT Internal Medicine; ATTEND Internal Medicine
DX: R07.89 Other chest pain (principal); I10 Essential (primary) hypertension; E78.5 Hyperlipidemia, unspecified; R06.4 Hyperventilation; R61 Generalized hyperhidrosis; R11.0 Nausea; Z71.6 Tobacco abuse counseling; F17.200 Nicotine dependence, unspecified, uncomplicated; K21.9 Gastro-esophageal reflux disease without esophagitis; Z79.899 Other long term (current) drug therapy
CPT/HCPCS: 96372; 99285; 36415; 93005; 93306; 93351; 80061; 80053; 84443; 83735; 84484 ×2; 85025; 85610; 85730; 83036; G0378; J1644

== ENCOUNTER → 2022-10-01 | Outpatient (CLI) | payer OTHER ==
--- NOTE | 2022-10-01 14:55 | US ---
EXAMINATION TYPE: US scrotum with doppler. Grayscale and color Doppler Duplex imaging performed of t he scrotum. DATE OF EXAM: 10/01/2022 COMPARISON: NONE CLINICAL HISTORY: [id number] RIGHT TESTICULAR PAIN. Chronic right testicular pain that is flaring up. No injury. No swelling or redness. EXAM MEASUREMENTS: TESTICLES: Right Testicle: 4.4 x 3.2 x 2.4 cm Left Testicle: 4.4 x 3.2 x 2.3 cm EPIDIDYMIS HEAD: Right Epididymis: 0.8 x 0.8 x 1.2 cm Left Epididymis: 0.7 x 1.0 x 0.7 cm Doppler performed to assess for testicular vascularity; good bilateral color flow and waveforms are s een. There is no evidence of testicular torsion. Presence of hydroceles: Small left Presence of varicoceles: lateral right Right epididymal head cyst = 0.5 x 0.5 x 0.5 cm. IMPRESSION: 1 right-sided epididymal head cysts. 2. Small left-sided hydrocele. 3. Varicoceles noted on the right.
--- NOTE | 2022-10-01 16:09 | MR ---
EXAMINATION TYPE: MR cervical spine wo con DATE OF EXAM: 10/01/2022 COMPARISON: CT brain C-spine 06/24/2010 HISTORY: Neck pain, no injury, no surgery TECHNIQUE: Multiplanar, multisequence images of the cervical spine were acquired without contrast. Cervical segments are intact. There is normal alignment. Cervical spinal cord is of normal signal. Craniovertebral junction relationships are within normal limits. Multilevel disc desiccation. C2-C3: No disc bulge/herniation or protrusion. No Canal stenosis. Foramina are patent bilaterally. C3-C4: No disc bulge/herniation or protrusion. No Canal stenosis. Foramina are patent bilaterally . C4-C5: No evidence for degenerative disc disease. No disc bulge/herniation or protrusion. No Canal stenosis. Uncovertebral joint hypertrophy with mild right neural foraminal stenosis. Left neural for amen is patent. C5-C6: Eccentric right central to foraminal zone disc ossify complex with mild to moderate effacement of the anterior left lateral thecal sac. Uncovertebral joint hypertrophy demonstrated. Moderate left and severe right neural foraminal stenosis. C6-C7: Eccentric right central to foraminal zone disc bulge with mild to moderate effacement of anter ior left lateral thecal sac. Uncovertebral joint hypertrophy demonstrated with moderate bilateral don ral foraminal stenosis. C7-T1: No disc bulge/herniation or protrusion. No Canal stenosis. Foramina are patent bilaterally. IMPRESSION: Multilevel degenerative disease most pronounced at C5-C6 and C6-C7 with [id number] central cheri l stenosis and varying degrees of moderate to severe neural foraminal stenosis as described above.
== END | disposition home or self-care (01) ==
LOC: RADUSWWP 13:42
DX: M47.812 Spondylosis without myelopathy or radiculopathy, cervical region (principal); M48.02 Spinal stenosis, cervical region; N43.3 Hydrocele, unspecified; N50.811 Right testicular pain; I86.1 Scrotal varices; N50.3 Cyst of epididymis; M99.72 Connective tissue and disc stenosis of intervertebral foramina of thoracic region
CPT/HCPCS: 72141; 76870; 93975

== ENCOUNTER → 2023-03-04 | Outpatient (CLI) | payer OTHER ==
--- NOTE | 2023-03-04 16:48 | MR ---
EXAMINATION TYPE: MR lumbar spine wo con DATE OF EXAM: 03/04/2023 4:30 PM CLINICAL INDICATION:Male, 42 years old with history of M54.50 LOW BACK PAIN; PHH, Low back pain that radiates down right leg, and left buttocks. COMPARISON: None TECHNIQUE: Multi planar, multi sequence imaging was performed utilizing: T1-weighted, T2-weighted, a nd turbo inversion recovery imaging of the lumbar spine. IV Contrast: . None. FINDINGS: Alignment: The lumbar vertebral bodies have preserved heights and alignment. Cord: The conus medullaris and the distal spinal cord appear unremarkable with regards to their signa l intensity and morphology. Bones/Discs: Minimal disc degeneration changes worse at L5-S1 with disc space narrowing and Modic end plate changes. Multilevel disc desiccation is present. T12-L1: No evidence of significant spinal canal stenosis or neural foraminal stenosis. L1-L2: No evidence of significant spinal canal stenosis or neural foraminal stenosis. L2-L3: Disc bulge and facet joint arthropathy result in mild spinal canal and moderate bilateral neur al foraminal stenosis. L3-L4: Disc bulge and facet joint arthropathy result in mild spinal canal and moderate bilateral neur al foraminal stenosis. L4-L5: Disc bulge and facet joint arthropathy result in mild spinal canal and moderate bilateral neur al foraminal stenosis. L5-S1: The disc is rounded posterior morphology without significant spinal canal stenosis. Facet join t arthropathy with moderate bilateral neural foraminal stenosis. No significant spinal canal or neural foraminal stenosis in the remainder of the visualized levels. Other findings: None. IMPRESSION: 1. No definitive evidence of disc herniation or significant spinal canal stenosis. 2. Mild disc degeneration with associated osteoarthritic changes with multilevel at least moderate n eural foraminal stenosis worse at L5-S1.
== END | disposition home or self-care (01) ==
LOC: RADMRIMAIN 15:33
DX: M51.36 Other intervertebral disc degeneration, lumbar region (principal); M47.816 Spondylosis without myelopathy or radiculopathy, lumbar region; M99.73 Connective tissue and disc stenosis of intervertebral foramina of lumbar region
CPT/HCPCS: 72148

== ENCOUNTER 2023-10-02 23:07 | Emergency (ER) | payer OTHER ==
[2023-10-02 23:24] VITALS: TEMP 97.9
[2023-10-03 00:03] LABS: Basophils # (A) 0.1 k/uL (0-0.2); Basophils % (A) 0 %; Eosinophils # (A) 0.1 k/uL (0-0.7); Eosinophils % (A) 0 %; HGB 16.1 gm/dL (13.0-17.5); Lymphocytes # (A) 1.8 k/uL (1.0-4.8); Lymphocytes % (A) 12 %; MCH 28.8 pg (25.0-35.0); MCHC 34.2 g/dL (31.0-37.0); MCV 84.4 fL (80.0-100.0); Mean Platelet Volume 6.9; Monocytes # (A) 0.5 k/uL (0-1.0); Monocytes % (A) 3 %; Neutrophils # (A) 12.9 k/uL (1.3-7.7); Neutrophils % (A) 84 %; Platelet Count 316 k/uL (150-450); RBC 5.57 m/uL (4.30-5.90); RDW 12.6 % (11.5-15.5); WBC 15.4 k/uL (3.8-10.6)
--- NOTE | 2023-10-03 00:21 | ED ---
Abdominal Pain HPI - General Chief Complaint: Abdominal Pain Stated Complaint: abd pain NVD Time Seen by Provider: 10/02/23 23:20 Source: patient Mode of arrival: ambulatory Limitations: no limitations - History of Present Illness Initial Comments: 43-year-old male presented to the ED with a chief complaint of nausea and vomiting. Patient does report suspicious food intake last night. Patient states today onset of nausea vomiting, 1 episode of diarrhea, and left upper abdominal pain. No fever or chills. No chest pain shortness of breath. No changes in urinary habits. No other complaints at this time. - Related Data Home Medications Medication Instructions Recorded Confirmed Acetaminophen [Tylenol 8 Hour] 650 mg PO Q8H PRN 05/24/22 05/24/22 Calcium Carbonate [Tums] 500 mg PO QID PRN 05/24/22 05/24/22 Famotidine [Pepcid] 20 mg PO BID 05/24/22 05/24/22 Magnesium 250 mg PO DAILY 05/24/22 05/24/22 Melatonin 1 mg PO HS PRN 05/24/22 05/24/22 Niacin 500 mg PO DAILY 05/24/22 05/24/22 [place]-3/Dha/Epa/Fish Oil [Fish Oil 1 cap PO DAILY 05/24/22 05/24/22 1,000 mg Softgel] diphenhydrAMINE [Benadryl] 25 mg PO HS PRN 05/24/22 05/24/22 methocarbamoL 1,500 mg PO TID PRN 05/24/22 05/24/22 traMADol HCL 100 mg PO QID PRN 05/24/22 05/24/22 Previous Rx's Medication Instructions Recorded Metoclopramide [Reglan] 10 mg PO TID PRN #15 tab 10/03/23 Allergies Allergy/AdvReac Type Severity Reaction Status Date / Time bupropion [From Wellbutrin] AdvReac Unknown Verified 10/02/23 23:16 Review of Systems ROS Statement: Those systems with pertinent positive or pertinent negative responses have been documented in the HPI. ROS Other: All systems not noted in ROS Statement are negative. Past Medical History Past Medical History: GERD/Reflux Additional Past Medical History / Comment(s): back pain History of Any Multi-Drug Resistant Organisms: None Reported Past Surgical History: No Surgical Hx Reported Past Psychological History: No Psychological Hx Reported Smoking Status: Current every day smoker Past Alcohol Use History: Occasional Past Drug Use History: None Reported - Past Family History familiy Additional Family Medical History / Comment(s): patient does not know his family history , unaware of CAD General Exam Limitations: no limitations General appearance: alert, in no apparent distress Eye exam: Present: normal appearance Neck exam: Present: normal inspection Respiratory exam: Present: normal lung sounds bilaterally Cardiovascular Exam: Present: regular rate GI/Abdominal exam: Present: soft (Tenderness to palpation of the upper abdomen. No rebound guarding or rigidity. Bowel sounds present.) Neurological exam: Present: alert, oriented X3 Skin exam: Present: warm, dry Course Vital Signs 10/02/23 23:12 Temperature 97.9 F Pulse Rate 105 H Respiratory 20 Rate Blood Pressure 152/115 O2 Sat by Pulse 95 Oximetry Medical Decision Making - Medical Decision Making Was pt. sent in by a medical professional or institution (, PA, EDITORIAL SPECIALIST, urgent care, hospital, or care home...) When possible be specific @ -No Did you speak to anyone other than the patient for history (EMS, parent, family, police, friend...)? What history was obtained from this source @ -No Did you review nursing and triage notes (agree or disagree)? Why? @ -I reviewed and agree with nursing and triage notes Were old charts reviewed (outside hosp., previous admission, EMS record, old EKG, old radiological studies, urgent care reports/EKG's, care home records)? Report findings @ -No old charts were reviewed Differential Diagnosis (chest pain, altered mental status, abdominal pain women, abdominal pain men, vaginal bleeding, weakness, fever, dyspnea, syncope, headache, dizziness, GI bleed, back pain, seizure, CVA, palpatations, mental health, musculoskeletal)? @ -Differential Abdominal Pain Men: Appendicitis, cholecystitis, diverticulosis, ischemic bowel, pancreatitis, hepatitis, UTI, gastroenteritis, AAA, incarcerated hernia, bowel obstruction, constipation, inflammatory bowel, hepatitis, peptic ulcer disease, splenic infarction, perforated viscus, testicular torsion, this is not meant to be an all-inclusive list EKG interpreted by me (3pts min.). @ -None X-rays interpreted by me (1pt min.). @ -None done CT interpreted by me (1pt min.). @ -CT abdomen pelvis interpreted by me which revealed no evidence of acute finding. U/S interpreted by me (1pt. min.). @ -None done What testing was considered but not performed or refused? (CT, X-rays, U/S, labs )? Why? @ -None What meds were considered but not given or refused? Why? @ -None Did you discuss the management of the patient with other professionals (professionals i.e. DrAlexys, PA, EDITORIAL SPECIALIST, lab, RT, psych nurse, case management social worker, medical administrative specialist, teacher, investment officer, case work aide)? Give summary @ -No Was smoking cessation discussed for >3mins.? @ -No Was critical care preformed (if so, how long)? @ -No Were there social determinants of health that impacted care today? How? (Homelessness, low income, unemployed, alcoholism, drug addiction, transportation, low edu. Level, literacy, decrease access to med. care, fci, rehab)? @ -No Was there de-escalation of care discussed even if they declined (Discuss DNR or withdrawal of care, Hospice)? DNR status @ -No What co-morbidities impacted this encounter? (DM, HTN, Smoking, COPD, CAD, Cancer, CVA, ARF, Chemo, Hep., AIDS, mental health diagnosis, sleep apnea, morbid obesity)? @ -None Was patient admitted / discharged? Hospital course, mention meds given and route, prescriptions, significant lab abnormalities, going to OR and other pertinent info. @ -Discharge 43-year-old male presents to the ED with onset of nausea vomiting diffuse abdominal pain and 1 episode of diarrhea today. Does note suspicious food intake last night. Laboratory studies reviewed. Labs including CBC CMP largely unremarkable. Serology panel negative. CT abdomen pelvis revealed no evidence of acute finding. Patient given Zofran and Reglan here and IV fluids as well. Reports feeling significantly improved after medications and IV fluids. Discharged home with prescription for Reglan. Advise follow-up with PCP. Discussed return precautions with patient who verbalized agreement. Undiagnosed new problem with uncertain prognosis? @ -No Drug Therapy requiring intensive monitoring for toxicity (Heparin, Nitro, Insulin, Cardizem)? @ -No Were any procedures done? @ -No Diagnosis/symptom? @ -Nausea and vomiting Acute, or Chronic, or Acute on Chronic? @ -Acute Uncomplicated (without systemic symptoms) or Complicated (systemic symptoms)? @ -Uncomplicated Side effects of treatment? @ -No Exacerbation, Progression, or Severe Exacerbation? @ -No Poses a threat to life or bodily function? How? (Chest pain, USA, [place], pneumonia, PE, COPD, DKA, ARF, appy, cholecystitis, CVA, Diverticulitis, Homicidal, Suicidal, threat to staff... and all critical care pts) @ -No - Lab Data Result diagrams: 10/02/23 23:45 10/02/23 23:45 Lab Results 10/02/23 10/02/23 10/03/23 Range/Units 23:45 23:45 01:21 WBC 15.4 H (3.8-10.6) k/uL RBC 5.57 (4.30-5.90) m/uL Hgb 16.1 (13.0-17.5) gm/dL Hct 47.0 (39.0-53.0) % MCV 84.4 (80.0-100.0) fL MCH 28.8 (25.0-35.0) pg MCHC 34.2 (31.0-37.0) g/dL RDW 12.6 (11.5-15.5) % Plt Count 316 (150-450) k/uL MPV 6.9 Neutrophils % 84 % Lymphocytes % 12 % Monocytes % 3 % Eosinophils % 0 % Basophils % 0 % Neutrophils # 12.9 H (1.3-7.7) k/uL Lymphocytes # 1.8 (1.0-4.8) k/uL Monocytes # 0.5 (0-1.0) k/uL Eosinophils # 0.1 (0-0.7) k/uL Basophils # 0.1 (0-0.2) k/uL Sodium 141 (137-145) mmol/L Potassium 4.3 (3.5-5.1) mmol/L Chloride 107 (98-107) mmol/L Carbon Dioxide 21 L (22-30) mmol/L Anion Gap 13 mmol/L BUN 10 (9-20) mg/dL Creatinine 0.69 (0.66-1.25) mg/dL Est GFR (CKD-EPI)AfAm >90 (>60 ml/min/1.73 sqM) Est GFR (CKD-EPI)NonAf >90 (>60 ml/min/1.73 sqM) Glucose 111 H (74-99) mg/dL Calcium 10.0 (8.4-10.2) mg/dL Total Bilirubin 1.0 (0.2-1.3) mg/dL AST 26 (17-59) U/L ALT 24 (4-49) U/L Alkaline Phosphatase 98 (38-126) U/L Total Protein 8.7 H (6.3-8.2) g/dL Albumin 5.3 H (3.5-5.0) g/dL Amylase 61 (30-110) U/L Lipase 102 (23-300) U/L Influenza Type A (PCR) Not Detected (Not Detectd) Influenza Type B (PCR) Not Detected (Not Detectd) RSV (PCR) Not Detected (Not Detectd) SARS-CoV-2 (PCR) Not Detected (Not Detectd) Disposition Clinical Impression: Nausea and vomiting Disposition: HOME SELF-CARE Condition: Good Additional Instructions: Please return to the Emergency Department if symptoms worsen or any other concerns. Please follow-up with your primary care provider. Prescriptions: Metoclopramide [Reglan] 10 mg PO TID PRN #15 tab PRN Reason: Nausea Is patient prescribed a controlled substance at d/c from ED?: No Referrals: [facility],Clinic [Primary Care Provider] - 1-2 days Time of Disposition: 03:14
[2023-10-03 00:24] LABS: ALT 24 U/L (4-49); AST 26 U/L (17-59); African American GFR (CKD) >90 (>60 ml/min/1.73 sqM); Albumin 5.3 g/dL (3.5-5.0); Alkaline Phosphatase 98 U/L (38-126); Amylase 61 U/L (30-110); Anion Gap 13 mmol/L; Blood Urea Nitrogen 10 mg/dL (9-20); Carbon Dioxide 21 mmol/L (22-30); Chloride 107 mmol/L (98-107); Glucose 111 mg/dL (74-99); Lipase 102 U/L (23-300); Non-African American GFR(CKD) >90 (>60 ml/min/1.73 sqM); Potassium 4.3 mmol/L (3.5-5.1); Sodium 141 mmol/L (137-145); Total Protein 8.7 g/dL (6.3-8.2)
[2023-10-03] MEDS: METOCLOPRAMIDE 5 MG/ML 2 ML VIAL IVP STA (00:46)
[2023-10-03] MEDS: SODIUM CHLORIDE 0.9% 2,000 ML IV STA (00:46)
[2023-10-03] MEDS: ONDANSETRON 4 MG/2 ML VIAL IVP STA (01:43)
--- NOTE | 2023-10-03 02:03 | CT ---
EXAM: CT Abdomen and Pelvis With Intravenous Contrast CLINICAL HISTORY: ITS.REASON CT Reason: LUQ pain n/v TECHNIQUE: Axial computed tomography images of the abdomen and pelvis with intravenous contrast. CTDI is 18.3 mGy and DLP is 897.6 mGy-cm. This CT exam was performed using one or more of the following dose reduction techniques: automated exposure control, adjustment of the mA and/or kV according to patient size, and/or use of iterative reconstruction technique. COMPARISON: No relevant prior studies available. FINDINGS: Lung bases: Unremarkable. No mass. No consolidation. ABDOMEN: Liver: Unremarkable. No mass. Gallbladder and bile ducts: Unremarkable. No calcified stones. No ductal dilation. Pancreas: Unremarkable. No mass. No ductal dilation. Spleen: Unremarkable. No splenomegaly. Adrenals: Unremarkable. No mass. Kidneys and ureters: Unremarkable. No solid mass. No hydronephrosis. Stomach and bowel: Diverticulosis without evidence of diverticulitis. No obstruction. PELVIS: Appendix: No findings to suggest acute appendicitis. Bladder: Unremarkable. No mass. Reproductive: Unremarkable as visualized. ABDOMEN and PELVIS: Intraperitoneal space: Unremarkable. No free air. No significant fluid collection. Bones/joints: No acute fracture. No dislocation. Soft tissues: Unremarkable. Vasculature: Unremarkable. No abdominal aortic aneurysm. Lymph nodes: Unremarkable. No enlarged lymph nodes. IMPRESSION: No acute findings in the abdomen or pelvis. Diverticulosis without evidence of diverticulitis
[2023-10-03] MEDS: ONDANSETRON 4 MG ODT STARTER PACK 2 TAB BTL PO STA (03:34)
[2023-10-03 04:06] VITALS: BP 125/56; PULSE 87; RESP 18
== END 2023-10-03 03:33 | disposition home or self-care (01) ==
LOC: EC 23:07
DX: R11.2 Nausea with vomiting, unspecified (principal); R10.84 Generalized abdominal pain; R19.7 Diarrhea, unspecified; F17.200 Nicotine dependence, unspecified, uncomplicated; Z88.8 Allergy status to other drugs, medicaments and biological substances
CPT/HCPCS: 74177; 80053; 82150; 83690; 85025; 87636; 96361; 96374; 96375; 99284

== ENCOUNTER 2023-10-22 20:03 | Emergency (ER) | payer OTHER ==
--- NOTE | 2023-10-22 20:17 | ED ---
General Adult HPI - General Source: patient Mode of arrival: ambulatory <Gera Harp - Last Filed: 10/22/23 20:17> <Tom Aguirre - Last Filed: 10/22/23 22:04> - General Stated complaint: Testicular Pain Time Seen by Provider: 10/22/23 20:10 - History of Present Illness Initial comments: 43-year-old male presenting to the ED with complaints of testicular pain. Patient seen by myself on 10/02/2022 with symptoms of nausea vomiting diarrhea abdominal pain. Reports since then has developed intermittent bilateral testicular pain and swelling however mostly of the right. Reports he was advised to come to the ED by his PCP to rule out a torsion. Denies urinary symptoms. Denies urethral discharge. Denies concern for STD. (Gera Harp) 44-year-old female with acute on chronic testicular pain. Patient states that over the past 2 weeks he had increased bilateral testicular pain but worse on the right. He states he has a hydrocele. He has no concern for STDs. He has no dysuria or hematuria. (Tom Aguirre) - Related Data Home Medications Medication Instructions Recorded Confirmed Acetaminophen [Tylenol 8 Hour] 650 mg PO Q8H PRN 05/24/22 05/24/22 Calcium Carbonate [Tums] 500 mg PO QID PRN 05/24/22 05/24/22 Famotidine [Pepcid] 20 mg PO BID 05/24/22 05/24/22 Magnesium 250 mg PO DAILY 05/24/22 05/24/22 Melatonin 1 mg PO HS PRN 05/24/22 05/24/22 Niacin 500 mg PO DAILY 05/24/22 05/24/22 [place]-3/Dha/Epa/Fish Oil [Fish Oil 1 cap PO DAILY 05/24/22 05/24/22 1,000 mg Softgel] diphenhydrAMINE [Benadryl] 25 mg PO HS PRN 05/24/22 05/24/22 methocarbamoL 1,500 mg PO TID PRN 05/24/22 05/24/22 traMADol HCL 100 mg PO QID PRN 05/24/22 05/24/22 Previous Rx's Medication Instructions Recorded Metoclopramide [Reglan] 10 mg PO TID PRN #15 tab 10/03/23 Allergies Allergy/AdvReac Type Severity Reaction Status Date / Time bupropion [From Wellbutrin] AdvReac Unknown Verified 10/22/23 20:15 Review of Systems ROS Other: All systems not noted in ROS Statement are negative. <SalinakyaraGera nina - Last Filed: 10/22/23 20:17> ROS Other: All systems not noted in ROS Statement are negative. <Tom Aguirre - Last Filed: 10/22/23 22:04> ROS Statement: Those systems with pertinent positive or pertinent negative responses have been documented in the HPI. Past Medical History Past Medical History: GERD/Reflux Additional Past Medical History / Comment(s): tinitis. back pain. hydrocele History of Any Multi-Drug Resistant Organisms: None Reported Past Surgical History: No Surgical Hx Reported Past Psychological History: No Psychological Hx Reported Smoking Status: Current every day smoker Past Alcohol Use History: Occasional Past Drug Use History: None Reported - Past Family History familiy Additional Family Medical History / Comment(s): patient does not know his family history , unaware of CAD <Gera Harp - Last Filed: 10/22/23 20:17> General Exam <Gera Harp - Last Filed: 10/22/23 20:17> Head exam: Present: atraumatic, normocephalic Eye exam: Present: normal appearance, PERRL Neck exam: Present: normal inspection Respiratory exam: Present: normal lung sounds bilaterally. Absent: respiratory distress Cardiovascular Exam: Present: regular rate, normal rhythm GI/Abdominal exam: Present: soft. Absent: distended, tenderness exam: Present: vertical testicular lie, other (Tenderness over the right spermatic cord and testicular vessels). Absent: testicular tenderness, urethral discharge, scrotal swelling Neurological exam: Present: alert, oriented X3, normal gait. Absent: CN II-XII intact, motor sensory deficit <Tom Aguirre - Last Filed: 10/22/23 22:04> - General Exam Comments Initial Comments: Visual Physical Exam Vital signs reviewed General: Well-appearing, nontoxic, no acute distress. Head: Normocephalic, atraumatic Eyes: PERRLA, EOMI ENT: Airway patent Chest: Nonlabored breathing Skin: No visual rash, normal skin tone Neuro: Alert and oriented 3 Musculoskeletal: No gross abnormalities (Gera Harp) Course Vital Signs 10/22/23 20:08 Temperature 97.9 F Pulse Rate 89 Respiratory 18 Rate Blood Pressure 167/105 O2 Sat by Pulse 97 Oximetry Medical Decision Making <Carol AnnGera nina - Last Filed: 10/22/23 20:17> <Tom Aguirre - Last Filed: 10/22/23 22:04> - Medical Decision Making Quicknote portion performed. Signed Gera Harp PA-C (Gera Harp) Was pt. sent in by a medical professional or institution (, HEATHER, TOOL GRINDER OPERATOR, urgent care, hospital, or [facility]...) When possible be specific @ -No Did you speak to anyone other than the patient for history (EMS, parent, family, police, friend...)? What history was obtained from this source @ -No Did you review nursing and triage notes (agree or disagree)? Why? @ -I reviewed and agree with nursing and triage notes Were old charts reviewed (outside hosp., previous admission, EMS record, old EKG, old radiological studies, urgent care reports/EKG's, [facility] records)? Report findings @ -No old charts were reviewed Differential Diagnosis (chest pain, altered mental status, abdominal pain women, abdominal pain men, vaginal bleeding, weakness, fever, dyspnea, syncope, headache, dizziness, GI bleed, back pain, seizure, CVA, palpatations, mental health, musculoskeletal)? @ -Not applicable EKG interpreted by me (3pts min.). @ -As above X-rays interpreted by me (1pt min.). @ -None done CT interpreted by me (1pt min.). @ -None done U/S interpreted by me (1pt. min.). @Ultrasound scrotum shows normal flow to bilateral testicles, varicocele on the right. What testing was considered but not performed or refused? (CT, X-rays, U/S, labs)? Why? @ -None What meds were considered but not given or refused? Why? @ -None Did you discuss the management of the patient with other professionals (professionals i.e. , PA, TOOL GRINDER OPERATOR, lab, RT, psych nurse, social professionals, die hardener, teacher, assurance officer, case finisher)? Give summary @ -No Was smoking cessation discussed for >3mins.? @ -No Was critical care preformed (if so, how long)? @ -No Were there social determinants of health that impacted care today? How? (Homelessness, low income, unemployed, alcoholism, drug addiction, transportation, low edu. Level, literacy, decrease access to med. care, long term, rehab)? @ -No Was there de-escalation of care discussed even if they declined (Discuss DNR or withdrawal of care, Hospice)? DNR status @ -No What co-morbidities impacted this encounter? (DM, HTN, Smoking, COPD, CAD, Cancer, CVA, ARF, Chemo, Hep., AIDS, mental health diagnosis, sleep apnea, morbid obesity)? @ -None Was patient admitted / discharged? Hospital course, mention meds given and route, prescriptions, significant lab abnormalities, going to OR and other pertinent info. @ -[43-year-old male with acute on chronic testicular pain, ultrasound showing varicocele, no torsion, no signs of urinary tract infection. Patient treated with Tylenol Motrin and scrotal elevation. Undiagnosed new problem with uncertain prognosis? @ -No Drug Therapy requiring intensive monitoring for toxicity (Heparin, Nitro, Insulin, Cardizem)? @ -No Were any procedures done? @ -No Diagnosis/symptom? @ -Varicocele Acute, or Chronic, or Acute on Chronic? @ -Acute on chronic Uncomplicated (without systemic symptoms) or Complicated (systemic symptoms)? @ -Default Side effects of treatment? @ -No Exacerbation, Progression, or Severe Exacerbation? @ -No Poses a threat to life or bodily function? How? (Chest pain, [place], [place], pneumonia, PE, COPD, DKA, ARF, appy, cholecystitis, CVA, Diverticulitis, Homicidal, Suicidal, threat to staff... and all critical care pts) @ -No (Tom Aguirre) - Lab Data Lab Results 10/22/23 Range/Units 21:41 Urine Color Colorless Urine Appearance Clear (Clear) Urine pH 5.5 (5.0-8.0) Ur Specific [place] 1.013 (1.001-1.035) Urine Protein Negative (Negative) Urine Glucose (UA) Negative (Negative) Urine Ketones Negative (Negative) Urine Blood Small H (Negative) Urine Nitrite Negative (Negative) Urine Bilirubin Negative (Negative) Urine Urobilinogen <2.0 (<2.0) mg/dL Ur Leukocyte Esterase Negative (Negative) Urine RBC 3 (0-5) /hpf Urine WBC <1 (0-5) /hpf Urine Mucus Rare H (None) /hpf Disposition <Gera Harp - Last Filed: 10/22/23 20:17> Is patient prescribed a controlled substance at d/c from ED?: No Time of Disposition: 21:28 <Tom Aguirre - Last Filed: 10/22/23 22:04> Clinical Impression: Varicocele Disposition: HOME SELF-CARE Condition: Fair Instructions (If sedation given, give patient instructions): Varicocele (ED), Testicle Pain (ED) Referrals: [facility],Clinic [Primary Care Provider] - 1-2 days Drew Lechuga MD [STAFF PHYSICIAN] - 1-2 days
--- NOTE | 2023-10-22 21:13 | US ---
EXAMINATION TYPE: US scrotum with doppler. Grayscale and color Doppler Duplex imaging performed of tracie gruber scrotum. DATE OF EXAM: 10/22/2023 COMPARISON: 10/01/22 CLINICAL INDICATION: Male, 43 years old with history of r testicular pain swelling; Right lateral scr otum pain EXAM MEASUREMENTS: TESTICLES: Right Testicle: 4.6 x 3.0 x 2.0 cm Left Testicle: 4.6 x 2.7 x 2.1 cm EPIDIDYMIS HEAD: Right Epididymis: 0.8 cm. Epi head cyst measuring 0.5cm Left Epididymis: 0.8 cm Doppler performed to assess for testicular vascularity; good bilateral color flow and waveforms are s een. There is no evidence of testicular torsion. Presence of hydroceles: No Presence of varicoceles: Yes bilaterally, right side larger IMPRESSION: 1. No evidence of testicular torsion. 2. Right greater than left varicoceles.
[2023-10-22 21:59] LABS: Appearance,Urine Clear (Clear); Bilirubin,Urine Negative (Negative); Blood,Urine Small (Negative); Color,Urine Colorless; Glucose,Urine (UA) Negative (Negative); Ketones,Urine Negative (Negative); Leukocyte Esterase,Urine Negative (Negative); Mucus,Urine Rare /hpf; Nitrite,Urine Negative (Negative); PH, Urine 5.5 (5.0-8.0); Protein,Urine Negative (Negative); RBC,Urine 3 /hpf (0-5); Specific Gravity,Urine 1.013 (1.001-1.035); Urobilinogen,Urine <2.0 mg/dL (<2.0); WBC,Urine <1 /hpf (0-5)
[2023-10-22 23:17] VITALS: BP 160/98; PULSE 90; RESP 20; TEMP 98.1
== END 2023-10-22 22:41 | disposition home or self-care (01) ==
LOC: EC 20:03
DX: I86.1 Scrotal varices (principal); F17.200 Nicotine dependence, unspecified, uncomplicated; Z88.8 Allergy status to other drugs, medicaments and biological substances
CPT/HCPCS: 76870; 81001; 93975; 99284